=== PATIENT | female | born 1970 | race Two or more races ===

== ENCOUNTER 2019-02-03 14:54 | Emergency (ER) | payer OTHER ==
[~2019-02-03] VITALS: Ht 149.9 cm; Wt 48.8 kg
[2019-02-03 15:56] LABS: BASOPHILS # (AUTO) 0.04 x10^3/uL (0-0.1); BASOPHILS % (AUTO) 1 % (0-1); EOSINOPHILS # (AUTO) 0.29 x10^3/uL (0-0.4); EOSINOPHILS % (AUTO) 4 % (1-7); LYMPHOCYTES # (AUTO) 2.07 x10^3/uL (1-3.4); LYMPHOCYTES % (AUTO) 30 % (22-44); MD NO; MEAN CORPUSCULAR HEMOGLOBIN 31.1 pg (27.0-34.8); MEAN CORPUSCULAR HGB CONC 33.2 g/dL (32.4-35.8); MEAN CORPUSCULAR VOLUME 93.7 fL (80-100); MEAN PLATELET VOLUME 8.6 fL (7.4-10.4); MONOCYTES # (AUTO) 0.45 x10^3/uL (0.2-0.8); MONOCYTES % (AUTO) 7 % (2-9); NEUTROPHILS # (AUTO) 4.17 x10^3/uL (1.8-6.8); NEUTROPHILS % (AUTO) 59 % (42-75); PLATELET COUNT 309 x10^3/uL (130-400); RED BLOOD COUNT 4.69 x10^6/uL (3.82-5.3); RED CELL DISTRIBUTION WIDTH 12.5 % (9.6-15.2)
[2019-02-03 16:02] LABS: ALANINE AMINOTRANSFERASE 34 U/L (12-78); ALBUMIN 4.1 g/dL (3.4-5.0); ANION GAP 8 mmol/L (5-15); CALCIUM 8.6 mg/dL (8.5-10.1); CHLORIDE 105 mmol/L (98-107)
[2019-02-03 16:04] LABS: ALKALINE PHOSPHATASE 91 U/L (45-117); BILIRUBIN,TOTAL 0.3 mg/dL (0.2-1.0); TOTAL PROTEIN 8.2 g/dL (6.4-8.2)
--- NOTE | 2019-02-03 16:10 | NUR ---
THIS IS A 48 YEAR OLD FEMALE WHO C/O OF HEADACHE AND HIGH BP. SHE STATES THAT SHE HAS HAD SOME NAUSEA BUT NO VOMITING AND IS A LITTLE SENSITIVE TO LIGHT. CURRENT SYSTOLIC 180. SHE IS IN NO ACUTE DISTRESS. WILL CONTINUE TO MONITOR. CALL LIGHT IS IN REACH.
--- NOTE | 2019-02-03 16:15 | NUR ---
PATIENT STATES THAT SHE TOOK 5 MG OF HER MOTHER'S AMLODIPINE LAST NIGHT AND ANOTHER 5MG THIS MORNING TO TRY AND LOWER HER BP THAT HAS BEEN ELEVATED.
[2019-02-03 16:30] LABS: TROPONIN I < 0.015 ng/mL (0.000-0.045)
[2019-02-03] MEDS ORDERED: KETOROLAC 30 MG/1 ML IVPush ONE (16:30)
[2019-02-03] MEDS ORDERED: DIPHENHYDRAMINE 50 MG/ML, 1ML IVPush ONE (16:30)
[2019-02-03] MEDS ORDERED: SODIUM CHLORIDE 0.9% 1,000ML IVBOLUS ONE (16:30)
[2019-02-03] MEDS ORDERED: METOCLOPRAMIDE 5 MG/ML, 2ML IVPush ONE (16:30)
[2019-02-03] MEDS ORDERED: KETOROLAC 30 MG/1 ML ONE (16:37)
[2019-02-03] MEDS ORDERED: DIPHENHYDRAMINE 50 MG/ML, 1ML ONE (16:37)
[2019-02-03] MEDS ORDERED: METOCLOPRAMIDE 5 MG/ML, 2ML ONE (16:37)
--- NOTE | 2019-02-03 16:41 | NUR ---
PIV STARTED AND NS HUNG.
[2019-02-03] MEDS ORDERED: SODIUM CHLORIDE FLUSH 10ML SYR IVF ONE (17:00)
--- NOTE | 2019-02-03 17:10 | NUR ---
PATIENT MEDICATED WITH 12.5MG OF BENADRY, 5MG OF REGLAN AND 15MG OF TORADOL.
[2019-02-03 17:22] LABS: MICROSCOPIC NOT IND
[2019-02-03 17:28] LABS: CULTURE INDICATED? NO
[2019-02-03 18:33] VITALS: BP 138/80
--- NOTE | 2019-02-03 18:33 | NUR ---
Patient given discharge instructions and they have confirmed that they understand the instructions. Patient ambulatory with steady gait.
== END 2019-02-03 18:48 | disposition home or self-care (01) ==
LOC: ED 16:03
DX: R51 Headache (principal); R11.0 Nausea; Z88.0 Allergy status to penicillin; Z91.041 Radiographic dye allergy status
CPT/HCPCS: 36415; 80053; 81003; 84484; 84703; 85025; 93005; 96374; 96375; 99284; J1200; J1885; J2765; J7030